=== PATIENT | female | born 1975 | race Caucasian/White ===

== ENCOUNTER → 2016-11-28 | Outpatient (CLI) | payer OTHER ==
[~2016-11-28] MED LIST: ASPIRIN81 M1 PO; CITALOPRAM HYDR40 MG PO; DAYPRO600 M1 PO; DOXYCYCLINE100 M3 PO; FLAGYL500 MG PO; KEFLEX500 MG PO; LINZESS; ULTRAM50 MG PO
== END | disposition home or self-care (01) ==
LOC: RAD 10:48
DX: M51.34 Other intervertebral disc degeneration, thoracic region (principal); M25.561 Pain in right knee; M48.04 Spinal stenosis, thoracic region; G89.29 Other chronic pain

== ENCOUNTER 2020-05-26 16:23 | Emergency (ER) | payer SELFPAY ==
[~2020-05-26] VITALS: Ht 175.2 cm; Wt 113.4 kg
[2020-05-26 16:31] VITALS: BP 114/72
== END 2020-05-26 18:18 | disposition home or self-care (01) ==
LOC: ED 16:23
DX: S93.402A Sprain of unspecified ligament of left ankle, initial encounter (principal); F41.9 Anxiety disorder, unspecified; F32.9 Major depressive disorder, single episode, unspecified; Z79.899 Other long term (current) drug therapy; F17.200 Nicotine dependence, unspecified, uncomplicated; X58.XXXA Exposure to other specified factors, initial encounter; Y93.89 Activity, other specified; Y92.89 Other specified places as the place of occurrence of the external cause; Y99.8 Other external cause status

== ENCOUNTER → 2021-09-20 | Outpatient (CLI) | payer BC | END | disposition home or self-care (01) | LOC: ORTHO 00:19 | PROVIDERS: ATTEND Orthopaedic Surgery | DX: M25.561 Pain in right knee (principal) ==

== ENCOUNTER 2023-01-01 21:57 | Emergency (ER) | payer SELFPAY ==
[~2023-01-01] VITALS: Ht 176.7 cm; Wt 96.2 kg
[2023-01-01 22:35] LABS: BASO % 0.5 % (0.0-1.0); EOS # 0.4 10*3/uL (0.0-0.4); HEMATOCRIT 38.4 % (37.0-47.0); LYMPH # 1.2 10*3/uL (1.3-4.4); LYMPH % 15.6 % (27.0-41.0); MEAN CELL VOLUME 93.4 fl (81.0-99.0); MEAN CORPUSCULAR HGB 32.1 pg (27.0-31.0); MEAN CORPUSCULAR HGB CONC 34.4 g/dl (33.0-37.0); MEAN PLATELET VOLUME 8.5 fl (9.6-12.3); MONO # 0.5 10*3/uL (0.1-1.0); MONO % 6.1 % (3.0-9.0); NEUT # 5.7 10*3/uL (2.3-7.9); NEUT % 72.4 % (47.0-73.0); PLATELET COUNT AUTOMATED 181 10*3/uL (130-400); RED BLOOD COUNT 4.11 10*6/uL (4.10-5.10); RED CELL DISTRI WIDTH 12.6 % (0-14.5); WHITE BLOOD COUNT 7.8 10*3/uL (4.8-10.8)
[2023-01-01 22:47] LABS: ACT PARTIAL THROMBO TIME 28.5 SECONDS (20.0-32.1)
[2023-01-01 22:53] LABS: ALKALINE PHOSPHATASE 58 U/L (46-116); BUN 11 mg/dl (9-23); CHLORIDE 113 mmol/L (98-107); POTASSIUM 3.7 mmol/L (3.4-5.1); SGPT/ALT 24 U/L (10-49); TOTAL PROTEIN 6.4 gm/dL (6.0-8.0)
[2023-01-01 23:28] VITALS: BP 123/67
== END 2023-01-01 23:29 | disposition home or self-care (01) ==
LOC: ED 21:57
PROVIDERS: Emergency Medicine
DX: I82.401 Acute embolism and thrombosis of unspecified deep veins of right lower extremity (principal); F17.200 Nicotine dependence, unspecified, uncomplicated; Z79.899 Other long term (current) drug therapy; Z79.82 Long term (current) use of aspirin; Z98.890 Other specified postprocedural states; Z90.711 Acquired absence of uterus with remaining cervical stump

== ENCOUNTER → 2023-01-02 | Outpatient (CLI) | payer SELFPAY | END | disposition home or self-care (01) | LOC: US 10:00 | PROVIDERS: ATTEND Emergency Medicine | DX: I82.401 Acute embolism and thrombosis of unspecified deep veins of right lower extremity (principal); M79.604 Pain in right leg ==

== ENCOUNTER → 2023-04-03 | Outpatient (CLI) | payer BC ==
[2023-04-03 16:53] LABS: BASO % 0.5 % (0.0-1.0); EOS # 0.2 10*3/uL (0.0-0.4); EOS % 2.6 % (1.0-4.0); HEMATOCRIT 42.5 % (37.0-47.0); LYMPH % 12.4 % (27.0-41.0); MEAN CELL VOLUME 93.8 fl (81.0-99.0); MEAN CORPUSCULAR HGB 32.9 pg (27.0-31.0); MEAN CORPUSCULAR HGB CONC 35.1 g/dl (33.0-37.0); MEAN PLATELET VOLUME 8.5 fl (9.6-12.3); MONO # 0.4 10*3/uL (0.1-1.0); NEUT # 6.5 10*3/uL (2.3-7.9); NEUT % 79.3 % (47.0-73.0); PLATELET COUNT AUTOMATED 223 10*3/uL (130-400); RED BLOOD COUNT 4.53 10*6/uL (4.10-5.10); RED CELL DISTRI WIDTH 12.9 % (0-14.5); WHITE BLOOD COUNT 8.2 10*3/uL (4.8-10.8)
[2023-04-03 17:18] LABS: ALKALINE PHOSPHATASE 54 U/L (46-116); BUN 8 mg/dl (9-23); CHLORIDE 114 mmol/L (98-107); POTASSIUM 3.9 mmol/L (3.4-5.1); SGPT/ALT 18 U/L (10-49); TOTAL PROTEIN 6.7 gm/dL (6.0-8.0)
== END | disposition home or self-care (01) ==
LOC: US 15:00
PROVIDERS: Student in an Organized Health Care Education/Training Program; ATTEND Family Medicine
DX: I82.811 Embolism and thrombosis of superficial veins of right lower extremity (principal); D68.51 Activated protein C resistance; R53.83 Other fatigue

== ENCOUNTER → 2023-09-21 | Outpatient (CLI) | payer BC | END | disposition home or self-care (01) | LOC: US 09:59 | PROVIDERS: ATTEND Family Medicine | DX: M79.604 Pain in right leg (principal); I80.8 Phlebitis and thrombophlebitis of other sites; I87.1 Compression of vein ==

== ENCOUNTER → 2024-05-01 | Outpatient (CLI) | payer BC ==
[~2024-05-01] MED LIST changes: +ELIQUIS5 M1 PO; +LAMICTAL25 MG PO; +TOPAMAX100 M1 PO
== END | disposition home or self-care (01) ==
LOC: CARD 04-24 07:00
PROVIDERS: ATTEND Internal Medicine Cardiovascular Disease
DX: I49.3 Ventricular premature depolarization (principal); R07.89 Other chest pain; F17.200 Nicotine dependence, unspecified, uncomplicated